=== PATIENT | female | born 1960 | race Caucasian/White ===

== ENCOUNTER → 2024-12-15 | Outpatient (CLI) | payer BC ==
[~2024-12-15] MED LIST: IOHEXOL-350 75 ML VIAL IV ONE
--- NOTE | 2024-12-15 13:01 | HMCIMG ---
CT ABDOMEN WITHOUT AND WITH CONTRAST. CT PELVIS WITHOUT AND WITH CONTRAST INDICATION: Lower abdominal pain. TECHNIQUE: Routine transaxial images at 5 mm slice thickness were obtained prior to the administration of contrast material through the abdomen only, and after the intravenous infusion of 100 mL of Omnipaque 350 through the abdomen and pelvis without adverse effects. Delayed images of the abdomen and pelvis were also obtained. Coronal and sagittal reformatted imaging acquired for interpretation. Oral contrast was administered. CT was performed with one or more of the following dose reduction techniques: Automated exposure control, adjustment of the mA and/or kV according to patient size, or use of iterative reconstruction technique. COMPARISON: None FINDINGS: ABDOMEN: Heart size is normal. Visible lung bases are clear. The liver is normal in size and smooth in contour without lesions or biliary duct dilation. The spleen is normal in size without lesions. The gallbladder appears normal. The pancreas appears normal without pancreatic duct dilation. Left adrenal gland appears normal, but right is not well-visualized, perhaps removed. Right kidney is absent. Left kidney appears normal. Cortical nephrograms are symmetric and normal in appearance bilaterally. No significant abdominal, retrocrural or retroperitoneal adenopathy noted.No evidence for intra-abdominal free air or organized fluid collection. No aortic aneurysmal dilation or dissection identified. PELVIS: No evidence for free air or organized pelvic fluid collection. No significant pelvic adenopathy detected. Several diverticula along the colon. 1.6 cm diverticulum arises medially of the first segment of the duodenum. Terminal ileum appears unremarkable. The appendix is surgically absent. The urinary bladder appears unremarkable. Visible osseous structures are intact. IMPRESSION: Diverticulosis coli. Absent right kidney. Small proximal duodenal diverticulum.
== END | disposition home or self-care (01) ==
LOC: RAH 08:35
PROVIDERS: ATTEND Internal Medicine
DX: K57.50 Diverticulosis of both small and large intestine without perforation or abscess without bleeding (principal); R10.30 Lower abdominal pain, unspecified
CPT/HCPCS: 74178; Q9967

== ENCOUNTER → 2025-07-19 | Outpatient (CLI) | payer MEDICARE ==
[~2025-07-19] MED LIST changes: +IOHEXOL 350 MG/ML 100ML INFUS..BTL IV ONE; -IOHEXOL-350 75 ML VIAL IV ONE
--- NOTE | 2025-07-19 21:38 | CARDIOLOGY ---
RAD REPORT: CORNARY CT ANGIO RADIOLOGY REPORT: CORONARY CT ANGIOGRAPHY DATE: Jul 19, 2025 QUALITY: Excellent CLINICAL HISTORY AND INDICATION: [ chest pain ] TECHNIQUE: After obtaining a preliminary oil processing technician image, contrast imaging performed on an [employer] [id number] scanner. A dedicated, limited window, coronary imaging protocol was used, with single breath-hold, retrospective ECG gating, and automated arrhythmia rejection. 100 cc of low osmolar contrast agent: Omnipaque 350 was delivered via a 18-gauge IV catheter in the right antecubital fossa, using a power injector and followed by 60 cc of normal saline bolus as a chaser. Collimated images were reformatted at 0.5 mm intervals, and sent to an offline independent workstation for interpretation, using 3D anatomic reconstructions: Curved multiplanar reconstructions, maximum intensity projections, and multiplanar imaging. 10 mg IV metoprolol was administered prior to scanning. 0.8 mg SL nitroglycerin was given. CORONARY ARTERY DESCRIPTIONS: The coronary arteries arise in normal position. Left main coronary artery: Normal caliber vessel that bifurcates into the LAD and LCx. No stenosis. Left anterior descending coronary artery: Normal caliber vessel and gives rise to diagonal and septal branches. No stenosis. Left circumflex coronary artery: Normal caliber, nondominant and gives rise to two large OM branches. No stenosis. Right coronary artery: Large, dominant vessel giving rise to the PL and PDA branches. No stenosis. CAD-RADs: 0, absence of CAD. Thoracic Aorta: Normal diameter. Vivi Rowell MD Cardiovascular Disease [facility] VIVI ROWELL MD Jul 19, 2025 21:38
== END | disposition home or self-care (01) ==
LOC: RAH 07:41
PROVIDERS: ATTEND Student in an Organized Health Care Education/Training Program
DX: I25.10 Atherosclerotic heart disease of native coronary artery without angina pectoris (principal); R07.9 Chest pain, unspecified
CPT/HCPCS: 75574; J3490; Q9967